=== PATIENT | male | born 1995 | race Two or more races ===

== ENCOUNTER → 2022-12-26 | Emergency (ER) | payer OTHER ==
[~2022-12-26] VITALS: Ht 177.8 cm; Wt 95.3 kg
[~2022-12-26] MED LIST: LIDOCAINE 1% INJ 50 ML MDV IJ ONE; MORPHINE SULFATE INJ 2 MG/ML DISP.SYRIN IV ONE; MORPHINE SULFATE INJ 4 MG/ML DISP.SYRIN ONE; ONDANSETRON HCL/PF - ER 4 MG/2 ML VIAL IV ONE; ONDANSETRON HCL/PF 4 MG/2 ML VIAL ONE; TDAP [DIPH/PERTUSSIS/TET] 0.5 ML VIAL IM ONE; TYL2T PO
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
--- NOTE | 2022-12-26 04:06 | NUR ---
[employer] AT BED SIDE
--- NOTE | 2022-12-26 05:00 | NUR ---
DR ROSANNE ARIZMENDI AT PT'S BEDSIDE TO APPLY OSMAN TO SCALP; 15 SUTURES NOTES.
--- NOTE | 2022-12-26 05:15 | NUR ---
pt taken to ct via tatian[facility]
--- NOTE | 2022-12-26 05:39 | NUR ---
Pt is noted back from CT . Pt care continue as he is been monitor closely with C-Collar therapy in progress.
[2022-12-26 05:51] LABS: BASOPHILS % (AUTO) 0.3 % (0.0-2.0); EOSINOPHILS % (AUTO) 0.5 % (0.0-6.0); HEMATOCRIT 44 % (39-51); HEMOGLOBIN 14.8 g/dL (13.5-17.5); LYMPHOCYTES # (AUTO) 1.9 K/uL (0.8-4.8); LYMPHOCYTES % (AUTO) 18.4 % (20.0-44.0); MEAN CORPUSCULAR HGB CONC 34 g/dl (31.0-36.0); MEAN CORPUSCULAR VOLUME 89 fL (80-96); MONOCYTES # (AUTO) 0.9 K/uL (0.1-1.30); MONOCYTES % (AUTO) 8.2 % (2.0-12.0); NEUTROPHILS # (AUTO) 7.7 K/uL (1.8-8.9); NEUTROPHILS % (AUTO) 72.6 % (43.0-81.0); PLATELET COUNT (AUTO) 210 K/uL (150-450); RED BLOOD CELL COUNT(AUTO) 4.93 MIL/uL (4.5-6.0); WHITE BLOOD COUNT (AUTO) 10.6 K/uL (4.3-11.0)
--- NOTE | 2022-12-26 05:53 | NUR ---
URINE COLLECTED AND SENT TO LAB
[2022-12-26 06:03] LABS: CALCIUM, SERUM 8.2 mg/dL (8.5-10.1); CREATININE 0.7 mg/dL (0.6-1.3); POTASSIUM 3.5 mmol/L (3.5-5.1)
[2022-12-26 06:08] LABS: ALBUMIN 3.9 g/dL (3.4-5.0); BILIRUBIN,DIRECT 0.2 mg/dL (0.0-0.2); BILIRUBIN,TOTAL 0.3 mg/dL (0.2-1.0); TOTAL PROTEIN, SERUM 7.5 g/dL (6.4-8.2)
--- NOTE | 2022-12-26 07:10 | NUR ---
Pt care continue as report is given to the AM receiving RN.
--- NOTE | 2022-12-26 07:30 | NUR ---
Patient discharged to home in stable condition. Written and verbal after care instructions given. Patient verbalizes understanding of instruction.
[2022-12-26 08:39] VITALS: BP 140/52
== END | disposition home or self-care (01) ==
LOC: ER 03:36
DX: S01.01XA Laceration without foreign body of scalp, initial encounter (principal); S63.601A Unspecified sprain of right thumb, initial encounter; S80.02XA Contusion of left knee, initial encounter; V49.9XXA Car occupant (driver) (passenger) injured in unspecified traffic accident, initial encounter; Y93.89 Activity, other specified; Y92.411 Interstate highway as the place of occurrence of the external cause; Y99.8 Other external cause status; Z88.8 Allergy status to other drugs, medicaments and biological substances
CPT/HCPCS: 12005; 99285; 96374; 90471; 96375; 90715; 73130; 73564; 72125; 70450; 85025; 80048; 80076; 36415; 85730; 80143; 80320; 80307; J2270; J2405; A6403; L0172; G0480

== ENCOUNTER 2023-01-02 16:55 | Emergency (ER) | payer MEDICAID, OTHER ==
[~2023-01-02] VITALS: Ht 177.8 cm; Wt 99.8 kg
[~2023-01-02 16:55] MED LIST changes: -LIDOCAINE 1% INJ 50 ML MDV IJ ONE; -MORPHINE SULFATE INJ 2 MG/ML DISP.SYRIN IV ONE; -MORPHINE SULFATE INJ 4 MG/ML DISP.SYRIN ONE; -ONDANSETRON HCL/PF - ER 4 MG/2 ML VIAL IV ONE; -ONDANSETRON HCL/PF 4 MG/2 ML VIAL ONE; -TDAP [DIPH/PERTUSSIS/TET] 0.5 ML VIAL IM ONE
[2023-01-02 17:05] VITALS: BP 135/66
--- NOTE | 2023-01-02 17:07 | NUR ---
The patient bibs for "staple removal-was put in 7days ago". No s/s infection noted. Denies pain.
--- NOTE | 2023-01-02 18:25 | NUR ---
Patient discharged to home in stable condition. Written and verbal after care instructions given. Patient verbalizes understanding of instruction.
== END 2023-01-02 18:25 | disposition home or self-care (01) ==
LOC: ER 16:57
DX: S01.01XD Laceration without foreign body of scalp, subsequent encounter (principal); F17.200 Nicotine dependence, unspecified, uncomplicated; Z79.899 Other long term (current) drug therapy; Z88.1 Allergy status to other antibiotic agents; X58.XXXD Exposure to other specified factors, subsequent encounter